=== PATIENT | male | born 1985 | race Caucasian/White ===

== ENCOUNTER 2017-08-22 11:06 | Emergency (ER) | payer MEDICAID, OTHER ==
[~2017-08-22] VITALS: Ht 167.6 cm; Wt 109.1 kg
[2017-08-22 11:20] VITALS: Ht 167.6 cm; Wt 109.1 kg
[2017-08-22] MEDS ORDERED: morphine 2 MG INJ IV STA (11:31)
[2017-08-22] MEDS ORDERED: KETOROLAC 30 MG INJ IV STA (11:31)
[2017-08-22] MEDS ORDERED: SOD CHLORIDE 0.9% 1,000 ML IV STA (11:31)
[2017-08-22] MEDS ORDERED: ONDANSETRON 4 MG INJ IV STA (11:31)
[2017-08-22 11:50] LABS: BASOPHIL # 0.1 10^3/ul (0.0-0.1); BASOPHILS % 0.5 % (0.0-2.0); EOSINOPHILS % 0.1 % (0.0-7.0); HEMATOCRIT 48.5 % (42.0-52.0); HEMOGLOBIN 17.8 g/dl (14.0-18.0); LYMPHOCYTES # 2.4 10^3/ul (0.8-2.9); LYMPHOCYTES % 19.7 % (15.0-51.0); MEAN CORPUSCULAR HEMOGLOBIN 34.5 pg (29.0-33.0); MEAN CORPUSCULAR HGB CONC 36.7 g/dl (32.0-37.0); MONOCYTE # 1.1 10^3/ul (0.3-0.9); MONOCYTES % 9.2 % (0.0-11.0); NEUTROPHIL # 8.6 10^3/ul (1.6-7.5); NEUTROPHILS % 69.9 % (39.0-77.0); PLATELET COUNT 332 10^3/UL (140-415); RED BLOOD COUNT 5.16 10^6/ul (4.70-6.10); RED CELL DISTRIBUTION WIDTH 11.5 % (11.5-14.5); WHITE BLOOD COUNT 12.2 10^3/ul (4.8-10.8)
[2017-08-22 12:04] LABS: ALBUMIN 4.8 g/dl (3.3-4.9); ALBUMIN/GLOBULIN RATIO 1.14; BILIRUBIN,INDIRECT 0.7 mg/dl (0-1.1); BILIRUBIN,TOTAL 0.7 mg/dl (0.2-1.3); CALCIUM 10.3 mg/dl (8.4-10.2); CREATININE 1.05 mg/dl (0.61-1.24); POTASSIUM 3.8 mmol/L (3.5-5.1)
--- NOTE | 2017-08-22 12:29 | RADRPT ---
PROCEDURE: CT abdomen and pelvis without contrast. CLINICAL INDICATION: Abdominal pain. TECHNIQUE: CT scan of the abdomen and pelvis without contrast was performed on a multi-slice CT [facility] . Sagittal and coronal reformatted images were obtained from the axial source images. One or more of the following dose reduction techniques were used: - Automated exposure control. - Adjustment of the mA and/or kV according to patient size. - Use of iterative reconstruction technique. DLP 1604.2 mGycm. CTDIvol 23.1 mGy COMPARISON: None FINDINGS: The lung bases are clear. There is limited evaluation of the solid viscera from the lack of IV con trast. There is an approximately 4 mm nonobstructing right lower pole renal stone with a second punctate ca lcifications seen in the upper pole also nonobstructing. In the left kidney, there is a 3 mm nonobst ructing lower pole renal stone with another possible punctate calculus at the mid kidney. No uretera l stones are present with no evidence of hydronephrosis. There is hepatomegaly and fatty infiltration of the liver with no gross focal lesion or biliary duct al dilatation. The gallbladder is distended with layering material without surrounding inflammation . The spleen is unremarkable without mass. The adrenal glands are within normal limits without mass. The pancreas is unremarkable without focal lesion or surrounding inflammatory changes. There is no bowel obstruction or focal bowel inflammation. The appendix is unremarkable. There is a mildly fecal filled colon. There is no free air or free fluid. There are no enlarged lymph nodes. The aorta is unremarkable and there is no acute osseous abnormality. The prostate is grossly unremarkable. IMPRESSION: Small bilateral nonobstructing renal calculi are present with no evidence of ureteral stone or hydro nephrosis. Hepatomegaly and fatty infiltration of the liver is present. Layering material the gallbladder could represent sludge or stones without visible surrounding infla mmation. No evidence of bowel obstruction or inflammation. There is a mildly diffusely fecal filled colon. RPTAT: AA .Suhail Flynn MD, Date Time Electronically viewed and signed by .Suhail Flynn MD, MD on 08/22/2017 12:29 .J/
[2017-08-22] MEDS ORDERED: NAPR-688 PO (12:54)
[2017-08-22] MEDS ORDERED: CEPH-443 PO (12:54)
[2017-08-22] MEDS ORDERED: MAGN296S40 PO (12:54)
[2017-08-22] MEDS ORDERED: ONDA4TAB11 PO (12:54)
[2017-08-22] MEDS ORDERED: POLY17PO6 PO (12:54)
--- NOTE | 2017-08-22 13:12 | ERD ---
ER Documentation Chief Complaint Chief Complaint PT [facility] FROM [facility] FOR RLQ AP 08/01 X 2 WEEKS HPI This is 31-year-old male presents along with PD from senior living where he complained of right lower quadrant abdominal pain for the last 2 weeks. States it is a history of kidney stones before. Mild nausea with one episode of nonbloody nonbilious vomiting. Fever chills. Pain is described as a sharp pain. Take anything to relieve the pain and nothing makes it worse. ROS All systems reviewed and are negative except as per history of present illness. Medications Home Meds Active Scripts Polyethylene Glycol* (Miralax*) 17 Gm Powd.pack, 17 GM PO DAILY, #7 Prov:CHRIS BRANTLEY DO 08/22/17 Magnesium Citrate* (Magnesium Citrate*) 296 Ml Solution, 296 ML PO ONCE, #1 BOTTLE Prov:CHRIS BRANTLEY DO 08/22/17 Naproxen* (Naproxen*) 500 Mg Tablet, 500 MG PO BID Y for PAIN, #10 TAB Prov:KARONCHRIS DO 08/22/17 Ondansetron (Zofran Odt) 4 Mg Tab.rapdis, 4 MG PO Q6, #10 Prov:CHRIS BRANTLEY DO 08/22/17 Cephalexin* (Keflex*) 500 Mg Capsule, 500 MG PO QID for 3 Days, CAP Prov:CHIRS BRANTLEY 08/22/17 Allergies Allergies: Coded Allergies: No Known Allergy (Unverified , 03/11/15) PMhx/Soc History of Surgery: No Anesthesia Reaction: No Hx Neurological Disorder: No Hx Respiratory Disorders: No Hx Cardiac Disorders: No Hx Psychiatric Problems: No Hx Miscellaneous Medical Probl: Yes (KIDNEY STONES X 2) Hx Alcohol Use: No (denies) Hx Substance Use: Yes (MARIJUANA ) Hx Tobacco Use: No (denies) Smoking Status: Never smoker Physical Exam Vitals Vital Signs Date Time Temp Pulse Resp B/P Pulse Ox O2 Delivery O2 Flow Rate FiO2 08/22/17 11:20 98.6 88 22 134/86 100 Physical Exam Const: [] Mild distress Head: Atraumatic Eyes: Normal Conjunctiva ENT: Normal External Ears, Nose and Mouth. Neck: Full range of motion..~ No meningismus. Resp: Clear to auscultation bilaterally Cardio: Regular rate and rhythm, no murmurs Abd: Soft, mild diffuse tenderness without guarding or rebound, non distended. Normal bowel sounds Skin: No petechiae or rashes Ext: No cyanosis, or edema Neur: Awake and alert 3, no focal deficits Psych: Normal Mood and Affect Result Diagram: 08/22/17 1120 08/22/17 1120 Results 24 hrs Laboratory Tests Test 08/22/17 11:20 White Blood Count 12.210^3/ul Red Blood Count 5.1610^6/ul Hemoglobin 17.8g/dl Hematocrit 48.5% Mean Corpuscular Volume 94.0fl Mean Corpuscular Hemoglobin 34.5pg Mean Corpuscular Hemoglobin Concent 36.7g/dl Red Cell Distribution Width 11.5% Platelet Count 57256^3/UL Mean Platelet Volume 10.0fl Neutrophils % 69.9% Lymphocytes % 19.7% Monocytes % 9.2% Eosinophils % 0.1% Basophils % 0.5% Nucleated Red Blood Cells % 0.0/100WBC Neutrophils # 8.610^3/ul Lymphocytes # 2.410^3/ul Monocytes # 1.110^3/ul Eosinophils # 0.010^3/ul Basophils # 0.110^3/ul Nucleated Red Blood Cells # 0.010^3/ul Sodium Level 142mmol/L Potassium Level 3.8mmol/L Chloride Level 105mmol/L Carbon Dioxide Level 17mmol/L Anion Gap 24 Blood Urea Nitrogen 17mg/dl Creatinine 1.05mg/dl Glucose Level 131mg/dl Calcium Level 10.3mg/dl Total Bilirubin 0.7mg/dl Direct Bilirubin 0.00mg/dl Indirect Bilirubin 0.7mg/dl Aspartate Amino Transf (AST/SGOT) 239IU/L Alanine Aminotransferase (ALT/SGPT) 510IU/L Alkaline Phosphatase 133IU/L Total Protein 9.0g/dl Albumin 4.8g/dl Globulin 4.20g/dl Albumin/Globulin Ratio 1.14 Lipase 131U/L Current Medications Medications (Trade) Dose Ordered Sig/Penny Route PRN Reason Start Time Stop Time Status Last Admin Dose Admin Sodium Chloride (NS) 1,000 ml @ 1,000 mls/hr Q1H STAT IV 08/22/17 11:31 08/22/17 12:30 DC 08/22/17 12:04 Morphine Sulfate (morphine) 2 mg ONCE STAT IV 08/22/17 11:31 08/22/17 11:38 DC 08/22/17 12:04 Ondansetron HCl (Zofran Inj) 4 mg ONCE STAT IV 08/22/17 11:31 08/22/17 11:38 DC 08/22/17 12:05 Ketorolac Tromethamine (Toradol) 30 mg ONCE STAT IV 08/22/17 11:31 08/22/17 11:38 DC 08/22/17 12:04 Procedures/MDM Acute abdominal pain was easily relieved in the emergency room. Likely multifactorial. Patient has constipation as well as evidence of gallbladder sludge without surrounding inflammation, renal stones without evidence of obstruction. He was given 30 mg of Toradol as well as a liter of normal saline and 2 mg of morphine as well as 4 mg of Zofran after which she is symptoms resolved. That is very pleasant, sitting on edge of bed, fully dressed awaiting discharge. Is not able to urinate emergency room as he did urinate prior to leaving senior living. For this reason I am going to give him a few days of Keflex for possible infection. Also discharging with naproxen, Zofran, MiraLAX , magnesium citrate. Care follow-up in 2 3 days and strict return return precautions the ER if he has any fever or increasing pain. CT abdomen pelvis interpretation: Small renal stones without evidence of obstruction, gallbladder sludge without surrounding inflammation, constipation, I see no other acute process. I see no bowel obstruction, no free air, no fractures Departure Diagnosis: Primary Impression: Abdominal pain Additional Impressions: Constipation Leukocytosis Fatty liver Condition: Stable Patient Instructions: Abdominal Pain, Non-Alcoholic Fatty Liver Disease (NAFLD) , Constipation (Adult) Referrals: [facility] YOU HAVE RECEIVED A MEDICAL SCREENING EXAM AND THE RESULTS INDICATE THAT YOU DO NOT HAVE A CONDITION THAT REQUIRES URGENT TREATMENT IN THE EMERGENCY DEPARTMENT. FURTHER EVALUATION AND TREATMENT OF YOUR CONDITION CAN WAIT UNTIL YOU ARE SEEN IN YOUR DOCTORS OFFICE WITHIN THE NEXT 1-2 DAYS. IT IS YOUR RESPONSIBILITY TO MAKE AN APPOINTMENT FOR FOLOW-UP CARE. IF YOU HAVE A PRIMARY DOCTOR --you should call your primary doctor and schedule an appointment IF YOU DO NOT HAVE A PRIMARY DOCTOR YOU CAN CALL OUR PHYSICIAN REFERRAL HOTLINE AT IF YOU CAN NOT AFFORD TO SEE A PHYSICIAN YOU CAN CHOSE FROM THE FOLLOWING [facility] CLINICS [facility] [address] [facility] [address] [facility] [facility] [address] [facility] [address] [facility] [phone] [id number] [facility] [facility] [address] Additional Instructions: Call your primary care doctor TOMORROW for an appointment during the next 2-3 days.See the doctor sooner or return here if your condition worsens before your appointment time. CHRIS BRANTLEY DO Aug 22, 2017 13:12
[2017-08-22 13:51] VITALS: BP 125/78; PULSE 80; RESP 18
== END 2017-08-22 13:51 | disposition home or self-care (01) ==
LOC: E/R 11:06
DX: K59.00 Constipation, unspecified (principal); D72.829 Elevated white blood cell count, unspecified; K76.0 Fatty (change of) liver, not elsewhere classified
CPT/HCPCS: 36415; 74176; 80053; 83690; 85025; 96374; 96375; J1885; J2270; J2405; J7030; Z7502

== ENCOUNTER 2018-08-20 12:06 | Emergency (ER) | END 2018-08-20 16:44 | disposition left against medical advice (07) ==